=== PATIENT | female | born 2000 ===

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

== ENCOUNTER 2018-07-21 10:01 | Emergency (ER) | payer OTHER ==
[2018-07-21] MEDS ORDERED: Lactated Ringer's 1,000 ML IV ONE (11:44)
[2018-07-21] MEDS ORDERED: Nalbuphine HCL 10 mg/ml Ampule IVP ONE (12:41)
[2018-07-21] MEDS ORDERED: Lactated Ringer's 1,000 ML IV SCH (12:45)
[2018-07-21] MEDS ORDERED: DiphenhydrAMINE 50 mg/ml Inj IVP ONE (13:00)
[2018-07-21 13:04] LABS: BASO # 0.1 K/uL (0.0-0.2); BASO % 0.5 % (0.0-2.0); EOS # 0.1 K/uL (0.0-0.7); EOS % 0.6 % (0.0-4.0); LYMPH # 1.9 K/uL (1.0-4.3); LYMPH % 17.2 % (20.0-40.0); MEAN CELL VOLUME 79.8 fL (81.0-99.0); MEAN CORPUSCULAR HEMOGLOBIN 26.1 pg (27.0-31.0); MEAN CORPUSCULAR HGB CONC 32.7 g/dL (33.0-37.0); MEAN PLATELET VOLUME 9.4 fL (7.2-11.7); MONO # 0.5 K/uL (0.0-0.8); MONO % 4.2 % (0.0-10.0); NEUT # 8.6 K/uL (1.8-7.0); NEUT % 77.5 % (50.0-75.0); NRBC % 0.1 % (0.0-2.0); RBC 4.21 Mil/uL (3.80-5.20); RED CELL DISTRIBUTION WIDTH 15.7 % (11.5-14.5); WHITE BLOOD COUNT 11.1 K/uL (4.8-10.8)
[2018-07-21 13:10] LABS: SQUAMOUS EPITHIAL 29 /hpf (0-5); URINE BACTERIA OCC (<OCC); URINE BILIRUBIN NEGATIVE (NEGATIVE); URINE CLARITY Hazy (Clear); URINE COLOR Yellow (YELLOW); URINE GLUCOSE (UA) NORMAL (Normal); URINE LEUKOCYTE ESTERASE 1+ Leu/uL (Negative); URINE PROTEIN NEGATIVE (NEGATIVE); URINE UROBILINOGEN NORMAL mg/dL (0.2-1.0)
[2018-07-21 13:11] LABS: URINE BLOOD 1+ (NEGATIVE)
[2018-07-21 13:18] LABS: ALB/GLOB RATIO 0.9 (1.0-2.1); ALBUMIN 3.5 g/dL (3.5-5.0); ALT/SGPT 23 U/L (9-52); AST/SGOT 33 U/L (14-36); BLOOD UREA NITROGEN 5 mg/dL (7-17); CALCIUM 8.8 mg/dl (8.6-10.4); GFR NON-AFRICAN AMERICAN > 60
--- NOTE | 2018-07-21 15:06 | OBDCSUM ---
Datetime: 07/21/2018 14:37 Discharged to, Provider: Home Follow up at, Provider: [facility] Disch Instr Activity: Normal activity Disch Instr Diet: Regular Discharge Instructions, Provider: Routine instructions given Discharge Diagnosis, Provider: Term Delivered Discharge Time: 07/21/2018 14:37 Follow up in weeks, Provider: As scheduled Disch Referrals: None Discharge Comment, Provider: Patient to be discharged home Contractions with no cervical changes Precaution labor given Instructions to eat and walking Patient to return to the hospital if contractions are stronger
--- NOTE | 2018-07-21 15:06 | OBHP ---
Datetime: 07/21/2018 11:03 IP Adm Impression: Term, intrauterine IP Admit Plan: Observation/Evaluation (Annotations: Data stored by CPN on behalf of user) Admit Comment, IP Provider: Patient is 17 year old at 38 weeks (LMP: 10/16/17) with AYESHA (08/04/18 by US), who presents to the ED with complaints of contractions that started yesterday morning with f requent contractions last night that are 5 minutes apart. Patient admits to pink vaginal discharge ye sterday. Patient denies any vaginal bleeding, leakage of fluid and admits to movement. 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 Denies current or former use of tobacco, ETOH and illicit drugs A/P: 17 year old at 38 weeks (LMP: 10/16/17) with AYESHA (08/04/18 by US), who presents to the i el[facility] for contractions that started yesterday: 1. Continous external monitoring and TOCO 2. Lactate ringer bolus due to lack of reactivity at the time of triage 3. Instructions to walk after bolus 4. Recheck SVE after ambulation 5. Further management after SVE; repeat SVE: Contraction every 4-5 minutes with no cervical change s. SVE unchanged. 6. All plans and management discussed with Dr. Perez Salazar, , PGY-2 agree wth above pt seen and examiend with cotnacit pain decined any analgesia pt ambulated adn reexzined and unhcaged, again declied anlagise dc home labor preucaitn given has f/u this weke in clinic Abdomen - PN: Normal Lungs - PN: Normal Heart - PN: Normal HEENT - PN: Normal General - PN: Normal FHR - Baseline A Provider: 140 Contraction Comments Provider: Yes Comments, ACOG Physical Exam: As above Gestation - Est Wks by US: 38.0 EGA AdmitDate IP: 38.0 Vital Signs Provider: Reviewed IP Chief Complaint: Uterine contractions NICHD Variability Prov Fetus A: Moderate 6-25bpm NICHD Accel Fetus A IP Provider: 15X15 Dilatation, Provider: 1 Effacement, Provider: 50 Station, Provider: -3 Genitourinary Exam: Normal
[2018-07-21 19:01] VITALS: BP 112/61; PULSE 72; TEMP 98
== END 2018-07-21 14:58 | disposition home or self-care (01) ==
LOC: C.EROB 10:01 → UNDOADMIN 12:33 → C.4D 12:33 → C.EROB 14:58 → UNDODISIN 14:58
DX: O47.1 False labor at or after 37 completed weeks of gestation (principal); Z3A.38 38 weeks gestation of pregnancy
CPT/HCPCS: 80053; 81001; 85025; 86592; 86850; 86900; 99283; J1200; J7120

== ENCOUNTER 2018-07-24 04:50 | Inpatient (IN) | payer OTHER ==
[2018-07-24 05:42] VITALS: BMI 27.1
[2018-07-24] MEDS ORDERED: Lactated Ringer's 1,000 ML IV ONE (06:33)
[2018-07-24] MEDS ORDERED: Oxytocin 30 UNIT 30 UNITS/500 ML BAG IV ONE ×2 (06:33→09:19)
--- NOTE | 2018-07-24 06:59 | OBHP ---
Datetime: 07/24/2018 06:48 IP Adm Impression: Term, intrauterine IP Admit Plan: Admit to unit; Initiate labor protocol Pelvic Type - PN: Adequate Extremities - PN: Normal Abdomen - PN: Normal Back - PN: Normal Breast - PN: Not Done Lungs - PN: Normal Heart - PN: Normal Thyroid - PN: Normal Neurologic - PN: Normal HEENT - PN: Normal General - PN: Normal FHR - Baseline A Provider: 140 Membranes, Provider: Intact Contraction Comments Provider: 3 mins EGA AdmitDate IP: 38.3 Vital Signs Provider: Reviewed; Within Normal Limits IP Chief Complaint: Uterine contractions NICHD Variability Prov Fetus A: Moderate 6-25bpm NICHD Accel Fetus A IP Provider: 10X10 Dilatation, Provider: 3 Effacement, Provider: 90 Station, Provider: -1 Genitourinary Exam: Normal DTRs - PN: Normal
[2018-07-24 07:23] LABS: BASO % 0.3 % (0.0-2.0); EOS % 0.5 % (0.0-4.0); HEMOGLOBIN 11.3 g/dL (11.0-16.0); LYMPH # 1.8 K/uL (1.0-4.3); LYMPH % 17.9 % (20.0-40.0); MEAN CELL VOLUME 79.4 fL (81.0-99.0); MEAN CORPUSCULAR HEMOGLOBIN 26.7 pg (27.0-31.0); MEAN CORPUSCULAR HGB CONC 33.6 g/dL (33.0-37.0); MEAN PLATELET VOLUME 8.7 fL (7.2-11.7); MONO # 0.6 K/uL (0.0-0.8); NEUT # 7.6 K/uL (1.8-7.0); NEUT % 75.3 % (50.0-75.0); RBC 4.24 Mil/uL (3.80-5.20); RED CELL DISTRIBUTION WIDTH 15.6 % (11.5-14.5); WHITE BLOOD COUNT 10.1 K/uL (4.8-10.8)
[2018-07-24] MEDS ORDERED: Bupivacaine HCl/FentaNYL Cit 100 ML EPI ONE ×2 (09:05→14:18)
[2018-07-24] MEDS: Lactated Ringer's 1,000 ML IV SCH ×2 (10:47→17:05)
[2018-07-24 14:04] LABS: SQUAMOUS EPITHIAL 21 /hpf (0-5); URINE BACTERIA RARE (<OCC); URINE BILIRUBIN NEGATIVE (NEGATIVE); URINE BLOOD NEGATIVE (NEGATIVE); URINE CLARITY Hazy (Clear); URINE COLOR Amber (YELLOW); URINE GLUCOSE (UA) NORMAL (Normal); URINE LEUKOCYTE ESTERASE 1+ Leu/uL (Negative); URINE PROTEIN NEGATIVE (NEGATIVE)
[2018-07-24 14:14] LABS: ALBUMIN 3.8 g/dL (3.5-5.0); ALT/SGPT 25 U/L (9-52); AST/SGOT 31 U/L (14-36); BLOOD UREA NITROGEN 5 mg/dL (7-17); CALCIUM 9.3 mg/dl (8.6-10.4); GFR NON-AFRICAN AMERICAN > 60
[2018-07-24] MEDS ORDERED: Bupivacaine 0.25% 20 ML INJ IJ ONE (14:19)
[2018-07-24] MEDS ORDERED: Lidocaine 2% MPF (5 ml) Inj ONE ×2 (14:27→17:28)
--- NOTE | 2018-07-24 15:33 | OBADHP ---
Datetime: 07/24/2018 06:48 Admit Comment, IP Provider: CC "contractions" HPI: Patient is a 17 year old female, LMP 10/16/17 who presents for contractions that started on Mon and worsened at 6 hours prior to arrival. She states her contractions are currently every 10 mi nutes. She states she feels movement, denies vaginal bleeding or rupture of membranes. She stat es her AYESHA is 08/04/18 as per US on 01/09/18. Patient admits she recently traveled to [facility] from 05/17 12/03 to 06/28/18. ROS: + recent right ear pain, resolved with drops. Denies recent fevers, chills, headache, dizzine ss, chest pain, shortness of breath, abdominal pain, nausea, vomiting, diarrhea, dysuria, leg swellin g or calf pain. PObHx: PGYNhx: LMP 10/16/17, Age of menarche 10, cycle 28 days, lasts 5 days. Denies prior history of STIs, Denies prior Papsmears, Denies history of ovarian cysts or fibroids. Family hx: Denies history of cancer of breast, ovary or endometrium. Mother age 48 has HTN. Dad is 51. Social hx: denies tobacco, alcohol or drug use. Meds: vitamins Allergies: NKDA Assessment 17 year old female presents in early labor and with a lot of pain. NST reactivef Will admit for Plan: Admit to unit NPO LR @ 125cc/hr IV Pitocin 30 units IV Anesthesia consulted for pain control Anticipate vaginal delivery CBC, CMP, UA Pelvic Type - PN: Adequate Extremities - PN: Normal Abdomen - PN: Normal Back - PN: Normal Breast - PN: Not Done Lungs - PN: Normal Heart - PN: Normal Thyroid - PN: Normal Neurologic - PN: Normal HEENT - PN: Normal General - PN: Normal Presentation-Admit: Vertex FHR - Baseline A Provider: 140 Membranes, Provider: Intact Contraction Comments Provider: 3 mins Comments, ACOG Physical Exam: Gravid abdomen, Fundal height consistent with gestational age. Gestation - Est Wks by US: 38.3 Vital Signs Provider: Reviewed; Within Normal Limits IP Chief Complaint: Uterine contractions NICHD Variability Prov Fetus A: Moderate 6-25bpm NICHD Accel Fetus A IP Provider: 10X10 FHR Category Provider Fetus A: Category I NICHD Decel Fetus A IP Provider: None Dilatation, Provider: 3 Effacement, Provider: 90 Station, Provider: -1 Genitourinary Exam: Normal DTRs - PN: Normal EGA AdmitDate IP: 38.3 IP Adm Impression: Term, intrauterine IP Admit Plan: Admit to unit; Initiate labor protocol
--- NOTE | 2018-07-24 15:44 | OBPN ---
Datetime: 07/24/2018 06:48 IP Progress Impression: Normal progression of labor; Reassuring heart rate; Rupture of membran es IP Informed Consent Obtain: Vaginal Delivery IP Procedures: Sterile Vag Exam; Epidural Placement IP Progress Plan: Continue present management; Augmentation; Anesthesia consult Pool Provider: Positive Nitrazine Provider: Positive Membranes, Provider: Ruptured Amniotic Fluid Color, Provider: Clear Contraction Comments Provider: 3 mins FHR - Baseline A Provider: 140 Gestation - Est Wks by US: 38.3 Presentation-Admit: Vertex IP Progress Note Comment: SROM with clear fluid UC's Q 2-3 minutes with Pitocin at 6 mU/min tracing reactive and reassuring Continue increasing Pitocin to an adequate labor pattern Anticipate a vaginal delivery Vital Signs Provider: Reviewed; Within Normal Limits NICHD Accel Fetus A IP Provider: 10X10 FHR Category Provider Fetus A: Category I NICHD Variability Prov Fetus A: Moderate 6-25bpm Dilatation, Provider: 4-5 Effacement, Provider: 100 Station, Provider: -1 NICHD Decel Fetus A IP Provider: None
[2018-07-24] MEDS ORDERED: Benzocaine/Menthol 20%-0.5% Topical Spray (60 ml) TOP PRN (18:53)
[2018-07-24] MEDS ORDERED: Oxycodone/Acetaminophen 5/325 mg Tab PO PRN (18:53)
[2018-07-24] MEDS ORDERED: Chloroxylenol/HC/Pramoxine 10 ml Otic Soln AU SCH (19:30)
--- NOTE | 2018-07-24 21:04 | OBDS ---
DELIVERY PERSONNEL Delivery Doctor: Dr Tomas Radiation Protection Technician: Roopa Chaves RN Anesthesiologist: Milly Moralez MD MATERNAL INFORMATION Delivery Anesthesia: Epidural Medications in Delivery: 30 units of pitocin in 500 ml NS Estimated Blood Loss (ml): 200 Placenta Cultured: No Maternal Complications: None RN Comments: liveborn male , 9/9, Provider Comments: of viable male from FEDE position and over an intact perineum Apgars 9 and 9 and 1_5 minutes repectively. BW 7lbs 15 oz EBL 200 mls Cord blood and cord pH obtained and sent Pt and tolerated the procedure well and remained in LDR in S_S cpmdotopm LABOR SUMMARY EDC: 08/04/2018 00:00 No. Babies in Womb: 1 Labor Anesthesia: Epidural LABOR INFORMATION Reason for Induction: Not Applicable Onset of Labor: 07/24/2018 16:15 Complete Dilatation: 07/24/2018 17:15 Oxytocin: Augmentation Group B Beta Strep: Negative Steroids Given: None Reason Steroids Not Administered: Not Applicable MEMBRANES Membranes Rupture Method: Spontaneous Rupture of Membranes: 07/24/2018 14:01 Length of Rupture (hrs): 3.83 Amniotic Fluid Color: Clear Amniotic Fluid Amount: Moderate Amniotic Fluid Odor: None STAGES OF LABOR Stage 1 hrs: 1 Stage 1 min: 0 Stage 2 hrs: 0 Stage 2 min: 36 Stage 3 hrs: 0 Stage 3 min: 5 Total Time in Labor hrs: 1 Total Time in Labor min: 41 VAGINAL DELIVERY Episiotomy: None Laceration Extension: Second Degree Laceration Type: Perineal Laceration Repair: Yes Laceration Repair Note: Laceration repaired with 2-0 Vicryl and without complications Sponge Count Correct: Yes Sharps Count Correct: Yes BABY A INFORMATION Infant Delivery Date/Time: 07/24/2018 17:51 Method of Delivery: Vaginal Born in Route : No : N/A Forceps: N/A Vacuum Extraction: N/A Shoulder Dystocia : No SHOULDER DYSTOCIA BABY A Infant Delivery Date/Time: 07/24/2018 17:51 PRESENTATION/POSITION BABY A Presentation: Cephalic Cephalic Presentation: Vertex Vertex Position: Right Occipital Anterior Breech Presentation: N/A PLACENTA INFORMATION BABY A Placenta Delivery Time : 07/24/2018 17:56 Placenta Method of Delivery: Spontaneous Placenta Status: Delivered SCORES BABY A Heart Rate 1 min: >100 bpm Resp Effort 1 min: Good Cry Reflex Irritability 1 min: Cough or Sneeze or Pulls Away Muscle Tone 1 min: Active Motion Color 1 min: Body [place], Extremities Blue Resuscitation Effort 1 min: Tactile Stimulation SCORE 1 MIN: 9 Heart Rate 5 min: >100 bpm Resp Effort 5 min: Good Cry Reflex Irritability 5 min: Cough or Sneeze or Pulls Away Muscle Tone 5 min: Active Motion Color 5 min: Body [place], Extremities Blue Resuscitation Effort 5 min: N/A SCORE 5 MIN: 9 INFANT INFORMATION BABY A Gestational Age at Delivery: 38.3 Gestational Status: Term Infant Outcome : Liveborn Condition : Stable Sex: Male IDENTIFICATION/MEDS BABY A ID Band Number: [id number] ID Band Location: Left Leg; Left Arm Sensor Applied: Yes Sensor Number: [id number] Sensor Location : Cord Clamp Vitamin K Given : Not Given Erythromycin Given: Not Given WEIGHT/LENGTH BABY A Birthweight (gms): 3615 Infant Weight (lb): 7 Weight (oz): 15 Infant Length Inches: 20.00 Length cms: 50.8 CORD INFORMATION BABY A No. Cord Vessels: 3 Nuchal Cord : Around Neck x1, Loose Cord pH Baby Arterial: 7.24 Infant Cord pH Baby Venous: 7.33 Cord Blood Taken: Yes Infant Suction: Mouth; Nose ASSESSMENT BABY A Infant Complications: None Physical Findings at Delivery: Molding of the Head Respirations: Appears Normal Bricklayer Helper/ALS Called : No Infant Care By: Sohan Chaudhari RN Transferred To: Remains with Mother
[2018-07-24] MEDS: Neomycin/Polymyxin/Hydrocort Otic Soln BOTTLE AU SCH (22:00)
[2018-07-25] MEDS: Multiple Vitamins Tab PO SCH (10:07)
[2018-07-25] MEDS: Neomycin/Polymyxin/Hydrocort Otic Soln BOTTLE AU SCH ×3 (10:10→22:00)
[2018-07-25 11:25] LABS: BASO % 0.1 % (0.0-2.0); EOS # 0.1 K/uL (0.0-0.7); EOS % 0.5 % (0.0-4.0); HEMOGLOBIN 9.8 g/dL (11.0-16.0); LYMPH # 1.5 K/uL (1.0-4.3); LYMPH % 11.8 % (20.0-40.0); MEAN CELL VOLUME 79.6 fL (81.0-99.0); MEAN CORPUSCULAR HEMOGLOBIN 25.9 pg (27.0-31.0); MEAN CORPUSCULAR HGB CONC 32.5 g/dL (33.0-37.0); MEAN PLATELET VOLUME 8.6 fL (7.2-11.7); MONO # 0.7 K/uL (0.0-0.8); MONO % 5.5 % (0.0-10.0); NEUT # 10.4 K/uL (1.8-7.0); NEUT % 82.1 % (50.0-75.0); NRBC % 0.1 % (0.0-2.0); RBC 3.8 Mil/uL (3.80-5.20); RED CELL DISTRIBUTION WIDTH 15.9 % (11.5-14.5); WHITE BLOOD COUNT 12.7 K/uL (4.8-10.8)
--- NOTE | 2018-07-25 12:59 | OBPPN ---
Datetime: 07/25/2018 08:57 PP Pain Prov: Within normal limits PP Nausea Prov: Denies PP Flatus Prov: Yes (Annotations: Data stored by CPN on behalf of user) PP BM Prov: No PP Breasts Prov: Not Done PP Heart Prov: Normal PP Lungs Prov: Normal PP Abdomen/Uterus Prov: Normal PP Lochia Prov: Normal PP Vulva/Perineum Prov: Not Done PP CVA Tenderness Prov: Not Done PP Extremities Prov: Normal PP Impression Prov: Normal progression; Pain PP Plan Prov: Continue present management; consult PP Impression Other Prov: pain in suprapubic and perineal region PP Progress Note Prov: Patient seen and examined at bedside. Patient is s/p day 1. reports red lochia and perineal soreness breast and bottle feeding. Passing gas and denies any difficulty with urination. Patient tolerating diet and denies having any nasea or vomitng. Patient is ambulating around room without difficulty. A_P: 17 y/o F is s/p day 1 1. Vital signs stable this am. AM labs reviewed. 2. regular diet 3. pain medication PRn 4. Fe supplement 5. Lactaiton corporate learning consultant 6. routine post care Vital Signs Provider PP: Reviewed; Within Normal Limits
[2018-07-26 00:23] VITALS: O2SAT 99
[2018-07-26] MEDS: Multiple Vitamins Tab PO SCH (10:26)
[2018-07-26] MEDS: Neomycin/Polymyxin/Hydrocort Otic Soln BOTTLE AU SCH (10:29)
--- NOTE | 2018-07-26 10:30 | OBPPN ---
Datetime: 07/26/2018 10:26 PP Pain Prov: Within normal limits PP Nausea Prov: Denies PP Flatus Prov: Yes PP BM Prov: No PP Breasts Prov: Normal PP Heart Prov: Normal PP Lungs Prov: Normal PP Abdomen/Uterus Prov: Normal PP Lochia Prov: Normal PP Vulva/Perineum Prov: Normal PP CVA Tenderness Prov: Normal PP Extremities Prov: Normal PP C/S Incision Prov: Not Applicable PP Progress Prov: Normal PP Impression Prov: Normal progression PP Plan Prov: Discharge PP Progress Note Prov: pt seen adn examiend preort pain contorlled, ambuting, voidng, passign flatus , no BM, otleratign regualr diet withotu nause, vomitng, cp, sob, urinary complaint. pt is breat and bottel feedign and denies any sadness or depression VSS PE gen :N nad AAO x 3 RESP Ctab/l CVS: rrr, +S1/S2 BREAST: sot, NT, non enroged b/l ABD: soft, NT/ND, +BS, no guaridng, no rebound tendnerss, no rigdity FUNDUS: Firm, belwo level of umbiclus VE: minmal lochai, non fusl smelling EX:T negative adam's sign, no calf tendnerness A/P S/ ppd #2 doignw larry nuñez ca home f/u clinci 6 week precation givne Vital Signs Provider PP: Reviewed; Within Normal Limits
--- NOTE | 2018-07-26 10:30 | OBDCSUM ---
Datetime: 07/26/2018 10:27 Discharged to, Provider: Home Follow up at, Provider: clinic Disch Instr Activity: Normal activity Disch Instr Diet: Regular Discharge Instructions, Provider: Routine instructions given Discharge Diagnosis, Provider: Term Delivered Discharge Time: 07/26/2018 10:27 Follow up in weeks, Provider: 6 weeks Disch Referrals: None Contraception discussed, Prov: Yes Disch Activity Restrictions: No sexual activity; Nothing in vagina - [place], tampons, douche Discharge Comment, Provider: jens oneal Contraception after Delivery: Not Planning to Use
[2018-07-26] MEDS ORDERED: Influenza Vaccine 60 MCG/0.5 ML SYR (3 yr & up) IM ONE (11:26)
[2018-07-26 11:52] VITALS: PULSE 70; RESP 18; TEMP 97.9
[2018-07-26 21:39] VITALS: BP 100/57
== END 2018-07-26 13:30 | disposition home or self-care (01) | DRG 560 ==
LOC: C.EROB 04:50 → C.4D 06:33 → C.4M 20:00
PROVIDERS: ADMIT Obstetrics & Gynecology; ATTEND Obstetrics & Gynecology
PROC: 0KQM0ZZ Repair Perineum Muscle, Open Approach (ICD-10-PCS; principal; 2018-07-24)
PROC: 10E0XZZ Delivery of Products of Conception, External Approach (ICD-10-PCS; 2018-07-24)
DX: O69.81X0 Labor and delivery complicated by cord around neck, without compression, not applicable or unspecified (principal); O70.1 Second degree perineal laceration during delivery; Z37.0 Single live birth; Z3A.38 38 weeks gestation of pregnancy